=== PATIENT | male | born 1960 | race Caucasian/White ===

== ENCOUNTER 2018-12-05 00:07 | Observation (INO) | payer BC ==
[2018-12-05] VITALS (9 sets, daily range): BP systolic 111–128; BP diastolic 62–77
[~2018-12-05] VITALS: Ht 160 cm; Wt 73.5 kg
--- NOTE | 2018-12-05 01:10 | NUR ---
[facility] with c/o right sided weakness and tingling sensation.aaox4.assessment done.no resp.distress.ambulates to the rest room and voided.has colostomy stoma ,but no pouch. stoma covered with band aid.no leaking.pt used to irrigate that. tele #18 placed sinus melva.iv to left ac #20 g patent.as per pt has no home medication.oriented to the unit.bed locked and in lowest position.phone and call light within reach.instructed to call for s assistance as needed.
[2018-12-05] MEDS ORDERED: ZOLPIDEM TARTRATE 5 MG TAB PO PRN (03:00)
[2018-12-05] MEDS ORDERED: ACETAMINOPHEN 325 MG TAB PO PRN (03:00)
--- NOTE | 2018-12-05 06:50 | NUR ---
report taken to the oncoming rn.walking rounds done.stable condition.
--- NOTE | 2018-12-05 07:00 | NUR ---
Rcvd patient in report this am. Patient is asleep in bed at this time. No s/s of distress noted
--- NOTE | 2018-12-05 07:13 | NUR ---
CONSULTS CALLED. IS AWARE OF THAT.
[2018-12-05 08:24] LABS: BASOPHILS % 0.6 % (0.0-1.0); EOSINOPHILS # (AUTO) 0.1 (0.0-0.4); EOSINOPHILS % 1.4 % (0.0-6.0); HEMATOCRIT 42.5 % (38.2-49.6); HEMOGLOBIN 15.1 g/dL (14.0-18.0); LYMPHOCYTES # (AUTO) 0.8 (1.0-3.2); MEAN CORPUSCULAR HEMOGLOBIN 32.1 pg (28-32); MEAN CORPUSCULAR HGB CONC 35.5 g/dL (31-35); MEAN CORPUSCULAR VOLUME 90.2 fL (81-99); MONOCYTES # (AUTO) 0.4 (0.2-0.8); MONOCYTES % 11.3 % (4.4-11.3); NEUTROPHILS # (AUTO) 2.3 (2.1-6.9); NEUTROPHILS % 64.1 % (38.7-80.0); PLATELET COUNT 181 x10e3/uL (140-360); RED BLOOD COUNT 4.71 x10e6/uL (4.3-5.7); RED CELL DISTRIBUTION WIDTH 12.3 % (11.7-14.4)
--- NOTE | 2018-12-05 08:31 | NUR ---
Informed Dr. Puentes that patient can not have MRI d/t piece of metal being in his heart from a pacemaker removal
[2018-12-05 08:45] LABS: ALANINE AMINOTRANSFERASE 40 IU/L (0-55); ALBUMIN 3.5 g/dL (3.5-5.0); ALBUMIN/GLOBULIN RATIO 1.1 (0.8-2.0); ALKALINE PHOSPHATASE 81 IU/L (40-150); ANION GAP 9.8 mmol/L (8-16); BLOOD UREA NITROGEN 11 mg/dL (7-26); BUN/CREATININE RATIO 13 (6-25); CALCIUM 9.5 mg/dL (8.4-10.2); CARBON DIOXIDE 27 mmol/L (22-29); CHLORIDE 101 mmol/L (98-107); CREATININE, SERUM 0.84 mg/dL (0.72-1.25); EST GLOMERULAR FILTRATION RATE > 60 ML/MIN (60-); GLUCOSE 96 mg/dL (74-118); POTASSIUM 3.8 mmol/L (3.5-5.1); SODIUM 134 mmol/L (136-145)
[2018-12-05] MEDS ORDERED: ASPIRIN 81 MG ENTERIC COATED PO SCH (09:00)
[2018-12-05] MEDS ORDERED: ATORVASTATIN 20 MG TAB PO SCH (09:00)
--- NOTE | 2018-12-05 10:00 | NUR ---
Patient is AAOx3. Patient lung arthur clear to auscultation. Bowel sounds present x4. No edema noted. Patient c/o numbness to his right arm. Noted some discoloration to his third and fourth digit on the tips. Radial pulse weak. Patient ambulates on his own. No unsteady gait noted.
[2018-12-05 11:43] LABS: CHOL/HDL RATIO 3.4 (3.9-4.7)
[2018-12-05 12:08] LABS: THYROID STIMULATING HORMONE 1.746 uIU/mL (0.350-4.940)
[2018-12-05] MEDS ORDERED: SODIUM CHLORIDE 0.9% 100 ML 100 ML ONE (16:00)
[2018-12-05] MEDS ORDERED: IOPAMIDOL 370 MG/ML 200 ML INFUS..BTL INJ ONE (16:00)
--- NOTE | 2018-12-05 16:15 | Diagnostic Imaging Report ---
CTA OF THE RIGHT UPPER EXTREMITY INDICATION: Cold right hand, decreased pulse COMPARISON: None. TECHNIQUE: Scanning through the aortic arch and right upper extremity was performed after administration of IV contrast during arterial phase. Coronal and sagittal reformations were obtained. Routine protocol was performed. CT angiography protocol was used. Coronal and sagittal multiplanar, MIP, and 3-D volume-rendering reformations were obtained on a separate workstation under the direct supervision of a Radiologist. IV CONTRAST: 100 mL of Isovue-370 RADIATION DOSE: Total DLP: 989.70 mGy*cm Estimated effective dose: (DLP x 0.015 x size factor) mSv COMPLICATIONS: None Dose modulation, iterative reconstruction, and/or weight based adjustment of the mA/kV was utilized to reduce the radiation dose to as low as reasonably achievable. COMPARISON: None DISCUSSION: Chest abdomen and pelvis: Portions of the right side of the chest, abdomen and pelvis were included with imaging of the right upper extremity which is positioned along the patient's right side. There are no focal air space opacities in the right lung. There is mild dependent lower lobe atelectasis. No pleural effusion or pneumothorax. No focal abnormality is seen in the included portions of the liver, right adrenal or right kidney. A calcified gallstone is present. Included portions of the right abdomen are unremarkable. No acute bony abnormality is seen. Sclerotic focus in the right femoral head compatible with bone island. Superficial surrounding soft tissues unremarkable. VESSELS: Right upper extremity: The right innominate artery, subclavian artery and axillary artery are patent without stenosis. The right brachial artery is patent. The expected origin of the right radial artery is not visualized and likely occluded. Below the brachial artery there is bifurcation into 2 branches which appear to be interosseous artery and ulnar artery. The ulnar artery is abruptly unopacified in the distal forearm, about 6 cm above the wrist. At the level of the wrist only a single vessel is seen which appears to represent interosseous artery. The detail on axial and reconstructed images, due to artifact because of arm positioning, does not allow for evaluation for intraluminal filling defects. Aorta: No aneurysm or dissection of the thoracic aorta. Branching of the aortic arch is conventional with origin of the left common carotid from the innominate artery. Common carotid arteries and proximal left subclavian artery are patent. The abdominal aorta is patent without aneurysm or dissection. Renal arteries, celiac, SMA and EULOGIO are patent. The aortic bifurcation is patent. Right common iliac, internal iliac, external iliac and common femoral arteries are patent. Proximal SFA is patent. IMPRESSION: 1. There is no occlusive disease from the aortic arch through the right brachial artery. The radial artery is not visualized and is likely occluded at its origin. The ulnar artery opacification abruptly terminates in the distal forearm about 6 cm above the wrist. At the level of the wrist only a single small vessel is seen, apparently the interosseous artery. Resolution does not permit evaluation for intraluminal filling defects or vessels at the level of the hand. 2. No aneurysm or dissection of the aorta. 3. Cholelithiasis noted with no wall thickening of the gallbladder. Signed by: Dr. Jonathan Miles M.D. on 12/05/2018 4:12 PM
--- NOTE | 2018-12-05 16:23 | NUR ---
CTA results given to Dr. Myers. Per MD patient may resume diet.
--- NOTE | 2018-12-05 16:46 | Consultation ---
DATE OF CONSULTATION: 12/05/2018 Cardiac Consultation REASON FOR CONSULTATION: Tingling and numbness of the right arm, presence of discoloration on the tip of the finger namely the 3rd finger. HISTORY: A 58-year-old gentleman who is known with history of congenital heart block status post pacemaker implantation at younger age. The patient needed to have his device explanted in September 16, 2015, with laser lead extraction for MSSA bacteremia in [place]. He had small residual lead at the apex of the heart, which was left alone. The patient treated for endocarditis and apparently he completed his antibiotics on 10/22/2015 with no further infection or any other problem. His other problem beside this is the fact the patient when he was young, he needed to have GI surgery with colostomy for imperforated anus in 1996. The patient relatively well, doing well, recently he is feeling weak, not himself. He is still very active, but he gets tired easy and he does have some shortness of breath when he walks. He also had quite a lot of physical activity and probably injured his right elbow. He does not recall any injury to his tip of the finger. He noted this is becoming bluish discoloration with tingling and numbness on the medial aspect of the hand near the 5th finger. He was alarmed by it, he went to local emergency room, head CT scan reported negative, his EKG showed normal sinus rhythm, they were worried about CVA, they transferred him here for MRI, but definitely MRI cannot be done because of the presence of the metallic lead. The patient said he had dental workup six weeks ago and he had antibiotic coverage as usual. He denied having any fever, any chills. REVIEW OF SYSTEMS: GENERAL: Weakness. No fever. No chills. No weight gain. No weight loss. HEENT: Unremarkable. PULMONARY: No cough. No hemoptysis. CARDIAC: Easy fatigability, shortness of breath on exertion. No angina. No palpitation. No syncope or presyncope. GI: No hematemesis, no melena. HEMATOLOGY: No easy bruising or bleeding. : No frequency. No incontinence. MUSCULOSKELETAL: Occasional aches and pain. PERIPHERAL VASCULAR: No swelling of the lower extremity. SKIN: The only abnormality in the tip of the right hand finger. NEUROLOGICAL: Numbness of the medial aspect of the forearm and more of the right hand. No localized deficit. No seizure. PAST MEDICAL HISTORY: 1. History of complete heart block status post pacemaker implantation in 1989, unipolar lead with generator change in 1996, 2003. In 2005, he had loss of insulation of the old atrial lead, which was placed in 1989. In 2016, he had infection of his pacemaker and endocarditis. He had extraction of the lead with residual of small RV lead. 2. Colostomy for imperforated anus in 1996. 3. History of endocarditis in 2016, treated successfully. 4. Hepatitis C as per the patient. Dr. Harrison told him his liver is stable. He does not need treatment. SOCIAL HISTORY: He is . He stopped smoking in 1987. He is social alcohol drinker. He is director of quality. MEDICATIONS: Singulair 10 mg a day, fluticasone and recently it seems the patient is on atorvastatin 40 mg a day and aspirin 81 mg a day. ALLERGIES: NONE. FAMILY HISTORY: Father in his late 80s, diabetic with pacemaker and heart disease. Mother in her late 80s, she has had history of breast cancer. Three siblings, one brother, two sisters and two children, they are all healthy. PHYSICAL EXAMINATION: VITAL SIGNS: Height of 5 feet 3 inches, weight of 162 pounds. Blood pressure 120/80, heart rate of 70, respiratory rate of 18. HEENT: Pupils are equal and reactive. NECK: No elevation of jugular venous pulsation. CHEST: Clear to auscultation and percussion. There is scar of previous pacemaker. HEART: Normal first and second heart sounds. There is loud murmur over the aortic area. ABDOMEN: Colostomy is noted. Soft abdomen. EXTREMITIES: No abnormality with the exception of the right arm, which showed decreased radial and ulnar pulses. There is good brachial pulse. On the 3rd finger, there is evidence of bluish discoloration. NEUROLOGIC: Awake, alert, oriented. No motor or sensory deficits. LABORATORY DATA: Sodium of 134, potassium 3.8, BUN of 11, creatinine of 0.84, glucose of 96. White blood cell count of 3.6, hemoglobin of 15.1, hematocrit 42%, platelet count of 181,000. EKG from outpatient showed normal sinus rhythm. IMPRESSION: 1. Tingling and numbness of the right arm, seems to be mechanical. 2. Worry about the finding on the tip of the finger. 3. Decreased pulses in the right hand. 4. The patient with history of prior endocarditis, still having residual and murmur noted over the aortic area. RECOMMENDATION: Getting arterial Doppler of both upper extremity, I would concur with carotid Doppler. The patient had recently echocardiogram, which showed no major abnormality. We need to do blood cultures because of the patient's recent dental and the past history of endocarditis. We need to do arterial Doppler pending on the finding, we will consider either repeating his transthoracic echo or maybe PANCHITO. We will consider if the arterial Doppler of the extremity is abnormal, either CT angiogram, we will consult with Radiology for the best test. Differential diagnosis are discussed and explained. Questions are answered. MD REJI Rubio/CLAU /[id number]
--- NOTE | 2018-12-05 16:55 | NUR ---
Received orders from to transfer patient to [facility] under Dr. Bruce Miller for Ischemic right hand. Stat Echo and tech to call Dr. Myers. Manufacturing Manager Nick notified and was told to call Case management. I spoke to Soledad and Rebecca, RN CM. Dr. Myers also spoke to patient and patient's .
--- NOTE | 2018-12-05 17:12 | NUR ---
Spoke to [facility] and she is on her way in to do study. I informed her Dr. Myers would like to be called with Echo results.
--- NOTE | 2018-12-05 17:20 | NUR ---
CM to bedside and spoke to pt regarding order to transfer to [facility]. Pt stated MD spoke with him about it and he is agreeable. Choice letter signed and placed in chart. Copy to pt's transition of care folder. CM spoke to Erum at [facility] and initiated transfer. Informed her that accepting physician is Dr. Bruce Miller. Faxed face sheet and MD note. MOT initiated and given to Layla, feeder worker power unit operator.
--- NOTE | 2018-12-05 17:59 | NUR ---
Dr. Kohler aware Dr. Myers ordered transfer to [facility].
--- NOTE | 2018-12-05 19:07 | NUR ---
Report given and walking rounds done.
--- NOTE | 2018-12-05 19:08 | NUR ---
WALKING ROUNDS PERFORMED, RECEIVED PT LAYING FOWLERS IN BED, AAOX3, RR EVEN AND NON-LABORED, ON ROOM AIR. NO S/SX OF DISTRESS NOTED. (L) LOWER ABD DRESSING CDI. LEFT PT LAYING SEMI FOWLERS IN BED, BED IN LOW LOCKED POSITION, SIDE RAILS UPX2, CALL LIGHT AND PHONE WITHIN REACH.
--- NOTE | 2018-12-05 19:38 | NUR ---
REPORT ATTEMPTED TO CALL TO [facility], NURSE UNAVAILABLE.
--- NOTE | 2018-12-05 19:52 | NUR ---
REPORT CALLED TO KIRILL KIRK FOR PT TRANSFERRING TO [facility], [address], BED 1006.
--- NOTE | 2018-12-06 00:03 | Discharge Summary ---
HISTORY: A 58-year-old male, who has a past medical history positive for permanent pacemaker placement, which was removed later on due to sepsis, history of colostomy and bowel obstructions in the past, hypertension. The patient came here because of ischemic changes in the right hand. He was found to have right radial and right ulnar artery stenosis. He is going to be transferred to [facility] under the care of Dr. Miller, vascular surgeon. PHYSICAL EXAMINATION: VITAL SIGNS: Blood pressure 116/72, temperature 96.3, heart rate 48 per minute, respiratory rate 17 per minute, and oxygen saturation 96%. HEART: Showed regular rhythm. Normal S1 and S2 sound. LUNGS: Clear bilaterally. ABDOMEN: Soft. EXTREMITIES: Show some coldness and lack of radial pulse on the right radial artery. FINAL IMPRESSION: 1. 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 2. Hypertension. PLAN OF TREATMENT: Transfer to [facility] under Dr. Miller, vascular surgeon. Continue aspirin 81 mg daily, Lipitor 40 mg daily, Ambien 5 mg at nighttime, Tylenol 650 mg p.o. q.4 hours as needed. MD DIANA Nash/CLAU /[id number]
--- NOTE | 2018-12-06 01:38 | History and Physical ---
HISTORY OF PRESENT ILLNESS: A 58-year-old male, who has a past medical history positive for colostomy in the past, status post permanent pacemaker in the past and removed later on due to sepsis. The patient came to the hospital because he was having some pain in the right arm. He was noticing some cyanotic lesions on the hand and cold of the right hand and pain, so the patient was admitted to the hospital. CT angiogram showed stenosis of the radial and ulnar arteries on the right arm. The patient was seen by Dr. Myers. Arrangements have been made to transfer the patient to [facility] under the care of Dr. Miller, cardiovascular surgeon due to the ischemic changes in the right hand due to the ulnar and radial artery stenosis. REVIEW OF SYSTEMS: CARDIOVASCULAR: No chest pain or palpitation. RESPIRATORY: No shortness of breath. No cough. GASTROINTESTINAL: No nausea. No vomiting. No diarrhea. GENITOURINARY: No frequency. No dysuria. ALLERGIES: NOT ALLERGIC TO ANY MEDICATION. PAST MEDICAL HISTORY: He had a pacemaker placed some time ago and they removed due to sepsis. 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 He had a colostomy placed in the past and history of hypertension. SOCIAL HISTORY: He does not smoke. He does not drink. PHYSICAL EXAMINATION: VITAL SIGNS: Blood pressure 116/72, temperature 96.3, heart rate 48 per minute, respiratory rate 17 per minute, oxygen saturation 96%. HEART: Showed regular rhythm. Normal S1 and S2 sound. LUNGS: Clear bilaterally. ABDOMEN: Soft. EXTREMITIES: Show no evidence of edema or trauma. He does have lack of pulse in the right radial artery with coldness on the right hand. LABORATORY DATA: Sodium 134, potassium 3.8, chloride 101, CO2 of 27, BUN 11, creatinine 0.84, glucose 96. On CBC; white blood count 3.63, hemoglobin 15.1, hematocrit 42.5, platelet count 181,000. AST 33, ALT 40, total bilirubin 1.3, alkaline phosphatase 81. So, CT angiogram showed stenosis on the right radial and right ulnar arteries. IMPRESSION: 1. Ischemia of the right hand secondary to right ulnar and right radial artery stenosis. 2. Hypertension. PLAN OF TREATMENT: The patient is going to be transferred to the [facility] under the care Dr. Miller for performing a procedure to open the circulation of right radial and ulnar arteries. Continue aspirin 81 mg daily, Lipitor 40 mg daily, Ambien 5 mg at nighttime, Tylenol 650 mg q.4 hours as needed. MD DIANA Nash/CLAU /[id number]
== END 2018-12-05 20:25 | disposition short-term general hospital (02) ==
LOC: INTOOBSV 01:08 → MED/SURG 01:08
PROVIDERS: ADMIT Internal Medicine; ATTEND Internal Medicine
DX: I70.298 Other atherosclerosis of native arteries of extremities, other extremity (principal); Z95.0 Presence of cardiac pacemaker; Z86.19 Personal history of other infectious and parasitic diseases; I10 Essential (primary) hypertension
CPT/HCPCS: 36415; 73206; 80053; 80061; 84443; 85025; 87040; 92610; 93306; 93880; 93930; 97161; G0378; Q9967